=== PATIENT | male | born 1970 | race Caucasian/White ===

== ENCOUNTER → 2016-03-16 | Outpatient (CLI) | payer OTHER ==
[~2016-03-16] MED LIST: LORATADINE10 MG PO; WELLBUTRIN PO
== END ==
LOC: COL.RAD 09:53
DX: N40.0 Benign prostatic hyperplasia without lower urinary tract symptoms (principal); K57.30 Diverticulosis of large intestine without perforation or abscess without bleeding; Z87.440 Personal history of urinary (tract) infections
CPT/HCPCS: Q9967

== ENCOUNTER → 2018-04-26 | Outpatient (CLI) | payer SELFPAY | LOC: COL.RAD 15:08 | DX: K57.30 Diverticulosis of large intestine without perforation or abscess without bleeding (principal); Z90.49 Acquired absence of other specified parts of digestive tract | CPT/HCPCS: Q9967 ==

== ENCOUNTER 2019-07-05 08:30 | Day surgery (SDC) | payer BC ==
[~2019-07-05] VITALS: Ht 185.4 cm; Wt 84.8 kg
[2019-07-05] MEDS ORDERED: BENTYL 20MG20 MG/TAB PO (08:46)
[2019-07-05] MEDS ORDERED: ZOLOFT 50MG50 MG PO (08:46)
[2019-07-05] MEDS ORDERED: TYLENOL 500MG500 MG PO (08:46)
[2019-07-05] MEDS ORDERED: ALLEGRA ALLERG180 MG PO (08:46)
[2019-07-05] MEDS ORDERED: MOTRIN 200200 MG/TAB PO (08:47)
[2019-07-05] MEDS ORDERED: SUDAFED30 MG PO (08:47)
[2019-07-05 08:53] VITALS: BP 107/77; PULSE 103; TEMP 98.1
[2019-07-05 10:30] VITALS: BP 108/73; PULSE 103; TEMP 97.6
--- NOTE | 2019-07-05 10:30 | NUR ---
The patient arrived back to [facility] at this time. The patient appears alert and oriented and ambulated from the cart to the recliner in his room with the stand by assistance of one nurse. The patinet's post procedure vital signs were started at this time. The patient denies wanting anything to eat or drink at this time. Call light is within reach. Will continue to monitor the patient.
[2019-07-05 10:45] VITALS: BP 97/65; PULSE 89
--- NOTE | 2019-07-05 10:45 | NUR ---
The patient appears more alert and agrees to try some orange juice and meek crackers at this time. The patient's vital signs appear stable. Will continue to monitor the patient.
[2019-07-05 11:00] VITALS: BP 105/79; PULSE 97
--- NOTE | 2019-07-05 11:00 | NUR ---
The patient appeared to tolerate the food and drink well and requests more of each at this time. Call light remains within reach. Vital signs appear stable. Will continue to monitor the patient.
[2019-07-05 11:20] VITALS: BP 121/87; PULSE 92
--- NOTE | 2019-07-05 11:20 | NUR ---
The patient appears to be tolerating the food and drink well. The patient voices a desire to be discharged home after he speaks with Dr. Hogue. The patient's IV to his right forearm was removed and a pressure dressing was applied to the site.
--- NOTE | 2019-07-05 11:31 | NUR ---
Discharge instructions were reviewed with the patient at this time. He verbalized understanding and has no questions for the nurse at this time. The patient is dressed and ready to be escorted out. He has ordered an uber as this will be his form of transportation home.
--- NOTE | 2019-07-05 11:41 | NUR ---
The patient was escorted out to a private vehicle via wheelchair by DAILY Summers. The patient's belongings and discharge paperwork were sent with him. The patient is taking an Uber home.
== END 2019-07-05 11:41 | disposition home or self-care (01) ==
LOC: SDCO 08:30
DX: K57.30 Diverticulosis of large intestine without perforation or abscess without bleeding (principal); R93.3 Abnormal findings on diagnostic imaging of other parts of digestive tract; Z90.49 Acquired absence of other specified parts of digestive tract; Z87.891 Personal history of nicotine dependence; Z79.899 Other long term (current) drug therapy
CPT/HCPCS: J2250; J2405; J3010